=== PATIENT | female | born 1995 | race Caucasian/White ===

== ENCOUNTER 2017-06-09 09:05 | Emergency (ER) | payer OTHER ==
--- NOTE | 2017-06-09 09:28 | ER Document Report ---
ED Medical Screen (RME) - General Chief Complaint: Vaginal Bleeding Stated Complaint: VAGINAL BLEEDING Time Seen by Provider: 06/09/17 09:25 Mode of Arrival: Ambulatory Information source: Patient TRAVEL OUTSIDE OF THE [place] IN LAST 30 DAYS: No - HPI Patient complains to provider of: vaginal spotting in Onset: Yesterday - pt is a G1, approx 7 weeks along who started with some vaginal spotting and cramps yesterday. - Related Data Allergies/Adverse Reactions: No Known Allergies Allergy (Verified 06/09/17 09:23) Home Medications: Current Home Medications Vit Calc,Iron,Folic [ Vitamins] 1 each PO DAILY 06/09/17 [ History] Past Medical History - General Last Menstrual Period: 04/23/17 - Social History Chew tobacco use (# tins/day): No Frequency of alcohol use: None Drug Abuse: None Renal/ Medical History: Denies: Hx Peritoneal Dialysis Physical Exam - Vital signs Vitals: Temp Pulse Resp BP Pulse Ox 98.6 F 97 20 120/69 99 06/09/17 09:15 06/09/17 09:15 06/09/17 09:15 06/09/17 09:15 06/09/17 09:15 Course - Vital Signs Vital signs: Temp Pulse Resp BP Pulse Ox 98.6 F 97 20 120/69 99 06/09/17 09:15 06/09/17 09:15 06/09/17 09:15 06/09/17 09:15 06/09/17 09:15
[2017-06-09 10:01] LABS: ABSOLUTE EOSINOPHILS # (AUTO) 0.1 10^3/uL (0.0-0.6); ABSOLUTE LYMPHOCYTES (AUTO) 1.6 10^3/uL (0.5-4.7); ABSOLUTE MONOCYTES (AUTO) 0.4 10^3/uL (0.1-1.4); ABSOLUTE NEUT (AUTO) 4.9 10^3/uL (1.7-8.2); BASOPHILS % (AUTO) 0.2 % (0-2); EOSINOPHILS % (AUTO) 1.2 % (0-6); HEMATOCRIT 37.6 % (36.0-47.0); HEMOGLOBIN 12.6 g/dL (12.0-15.5); LYMPHOCYTES % (AUTO) 22.2 % (13-45); MEAN CORPUSCULAR HEMOGLOBIN 29.8 pg (27.0-33.4); MEAN CORPUSCULAR HGB CONC 33.5 g/dL (32.0-36.0); MEAN CORPUSCULAR VOLUME 89 fl (80-97); MONOCYTES % (AUTO) 6.1 % (3-13); PLATELET COUNT 191 10^3/uL (150-450); RED BLOOD COUNT 4.22 10^6/uL (3.72-5.28); RED CELL DISTRIBUTION WIDTH 14.1 % (11.5-14.0); SEGMENTED NEUTROPHILS % (AUTO) 70.3 % (42-78); TOTAL CELLS COUNTED % (AUTO) 100 %
[2017-06-09 10:04] LABS: APPEARANCE,URINE SLIGHTLY-CLOUDY; BILIRUBIN,URINE NEGATIVE (NEGATIVE); COLOR,URINE YELLOW; GLUCOSE, URINE NEGATIVE (NEGATIVE); KETONES,URINE NEGATIVE (NEGATIVE); LEUKOCYTE ESTERASE,URINE SMALL (NEGATIVE); NITRITE,URINE NEGATIVE (NEGATIVE); PROTEIN,URINE NEGATIVE (NEGATIVE); URINE SPECIFIC GRAVITY 1.028
[2017-06-09 10:14] LABS: ALANINE AMINOTRANSFERASE 25 U/L (9-52); ALBUMIN 4.5 g/dL (3.5-5.0); ALKALINE PHOSPHATASE 48 U/L (38-126); ANION GAP 14 (5-19); ASPARTATE AMINO TRANSFERASE 18 U/L (14-36); BILIRUBIN,DIRECT 0.2 mg/dL (0.0-0.4); BILIRUBIN,TOTAL 0.7 mg/dL (0.2-1.3); BLOOD UREA NITROGEN 12 mg/dL (7-20); CALCIUM 10.1 mg/dL (8.4-10.2); CARBON DIOXIDE 22 mmol/L (22-30); CHLORIDE 106 mmol/L (98-107); GLUCOSE 83 mg/dL (75-110); POTASSIUM 4.1 mmol/L (3.6-5.0); TOTAL PROTEIN 7.1 g/dL (6.3-8.2)
--- NOTE | 2017-06-09 11:02 | RADIOLOGY REPORT (SQ) ---
EXAM DESCRIPTION: U/S OB TRANSVAG W/DOPPLER COMPLETED DATE/TIME: 06/09/2017 10:28 am REASON FOR STUDY: vaginal spotting in COMPARISON: None. TECHNIQUE: Transvaginal static and realtime grayscale images acquired of the pelvis. Additional justin cted spectral and color Doppler images recorded. All images stored on PACs. bHCG: Pending. LIMITATIONS: None. FINDINGS: FETUS: Living intrauterine . EGA: 5 weeks 5 days PATRICIA: 02/04/2018 FHR: 99 beats per minute. SUBCHORIONIC BLEED: No. SIZE OF BLEED: Not applicable. UTERUS: Measures 9.2 x 6.7 x 5.6 cm. CERVICAL LENGTH: 3 cm. Closed. RIGHT ADNEXA: The right ovary measures 3.1 x 2.2 x 2.1 cm. Flow by Doppler was shown to the right ov silvia. LEFT ADNEXA: The left ovary measures 4.2 x 2.4 x 2.8 cm. Flow by Doppler was shown to the left ovary . There is a 3.0 cm cyst. FREE FLUID: Small amount of free fluid at the left adnexa. IMPRESSION: LIVING INTRAUTERINE . EGA 5 WEEKS 5 DAYS. 3.0 CM CYST AT THE LEFT OVARY. SMALL AMOUNT OF FREE FLUID AT THE LEFT ADNEXA. Trimester of : First - 0 to 13 weeks. TECHNICAL DOCUMENTATION: JOB ID: [id number]- All Rights Reserved
--- NOTE | 2017-06-09 11:16 | ER Document Report ---
ED GI/ - General Chief Complaint: Vaginal Bleeding Stated Complaint: VAGINAL BLEEDING Time Seen by Provider: 06/09/17 09:25 Mode of Arrival: Ambulatory Information source: Patient Notes: 22-year-old female G1 at 7-1/2 weeks by dates who presents today with the onset yesterday of some vaginal spotting. She states very mild suprapubic cramping without dysuria, flank pain, nausea, vomiting, or fevers. She denies any aggravating or relieving factors. TRAVEL OUTSIDE OF THE [place] IN LAST 30 DAYS: No - HPI Patient complains to provider of: Other - See above Onset: Other - See above Timing/Duration: Gradual Quality of pain: Achy Severity at maximum: Mild Severity in ED: Mild Pain Level: Denies Location: Other - See above Vaginal bleeding (Compared to normal period): Spotting Associated symptoms: Other - See above Exacerbated by: Denies Relieved by: Denies Similar symptoms previously: No Recently seen / treated by doctor: No - Related Data Allergies/Adverse Reactions: No Known Allergies Allergy (Verified 06/09/17 09:23) Home Medications: Current Home Medications Vit Calc,Iron,Folic [ Vitamins] 1 each PO DAILY 06/09/17 [ History] Past Medical History - General Information source: Patient Last Menstrual Period: 04/23/17 - Social History Smoking Status: Never Smoker Cigarette use (# per day): No Chew tobacco use (# tins/day): No Smoking Education Provided: No Frequency of alcohol use: None Drug Abuse: None Family History: Reviewed & Not Pertinent Patient has suicidal ideation: No Patient has homicidal ideation: No Renal/ Medical History: Denies: Hx Peritoneal Dialysis Review of Systems - Review of Systems Constitutional: denies: Fever Respiratory: denies: Short of breath Gastrointestinal: Abdominal pain. denies: Diarrhea, Vomiting Genitourinary: denies: Dysuria Musculoskeletal: denies: Leg swelling Skin: Other - no hives. denies: Rash Neurological/Psychological: Other - no slurred speech -: Yes All other systems reviewed and negative Physical Exam - Vital signs Vitals: Temp Pulse Resp BP Pulse Ox 98.6 F 97 20 120/69 99 06/09/17 09:15 06/09/17 09:15 06/09/17 09:15 06/09/17 09:15 06/09/17 09:15 Notes: Reviewed vital signs and nursing note as charted by RN. CONSTITUTIONAL: Alert and oriented and responds appropriately to questions. Well -appearing; well-nourished HEAD: Normocephalic; atraumatic CARD: Regular rate and rhythm; no murmurs RESP: Normal chest excursion without splinting or tachypnea; breath sounds clear and equal bilaterally ABD/GI: Normal bowel sounds; non-distended; soft, non-tender to deep palpation of all 4 quadrants of the abdomen : With tractor mechanic present with profound pelvic examination. No external or internal lesions. Osseous closed. No cervical motion tenderness or adnexal masses or tenderness BACK: There is no CVA tenderness EXT: Normal ROM in all joints; no edema SKIN: No acute lesions noted NEURO: Moves all extremities equally; Motor and sensory function intact PSYCH: The patient's mood and manner are appropriate. Grooming and personal hygiene are appropriate. Course - Re-evaluation Re-evalutation: 06/09/17 11:11 Given the history and physical examination ultrasound, pelvic exam, RhoGam/ blood type, and laboratory values were ordered. Ultrasound shows IUP, 5 weeks 5 days. Adnexal mass as recorded. Quantitative hCG is recorded. Urinalysis as recorded. Patient has no urinary symptoms. Urine culture has been sent. Patient still denies any pain at this time. Patient will be discharged home with strict return precautions and follow-up with HEALTH SERVICES RN. - Vital Signs Vital signs: Temp Pulse Resp BP Pulse Ox 98.6 F 97 20 120/69 99 06/09/17 09:15 06/09/17 09:15 06/09/17 09:15 06/09/17 09:15 06/09/17 09:15 - Laboratory Result Diagrams: 06/09/17 09:34 06/09/17 09:34 Laboratory results interpreted by me: 06/09/17 06/09/17 06/09/17 09:34 09:34 09:34 RDW 14.1 H Beta HCG, Quant 53068.00 H Urine Urobilinogen 4.0 H Ur Leukocyte Esterase SMALL H Discharge - Discharge Clinical Impression: Threatened miscarriage in early Condition: Good Disposition: HOME, SELF-CARE Instructions: Bleeding During Early ([facility]) Additional Instructions: Come back immediately with any increased bleeding, fever, vomiting, or any other acute problems. Please follow-up with HEALTH SERVICES RN as well as the urine culture results as we have discussed. Referrals: [facility] [Provider Group] - Follow up as needed
[2017-06-09 11:19] LABS: T.VAGINALIS (WET MOUNT) NO TRICHOMONAS SEEN
[2017-06-09 11:20] LABS: BACTERIA (WET MOUNT) 3+ BACTERIA SEEN; RBCS (WET MOUNT) NO RBCS SEEN; WBCS (WET MOUNT) 2+ WBCS SEEN; YEAST (WET MOUNT) NO YEAST SEEN
[2017-06-09 12:13] VITALS: BP 107/53
[2017-06-09 12:39] LABS: CHLAM PCR NOT DETECTED (NOT DETECT); GON PCR NOT DETECTED (NOT DETECT)
== END 2017-06-09 12:00 | disposition home or self-care (01) ==
LOC: ER 09:05
DX: O20.0 Threatened abortion (principal); O34.81 Maternal care for other abnormalities of pelvic organs, first trimester; N83.202 Unspecified ovarian cyst, left side; Z3A.01 Less than 8 weeks gestation of pregnancy
CPT/HCPCS: 36415; 76817; 80053; 81001; 84702; 85025; 86900; 86901; 87086; 87210; 87491; 87591; 93976; 99284

== ENCOUNTER 2017-11-23 19:27 | Outpatient (CLI) | payer OTHER ==
[2017-11-23 20:23] LABS: BACTERIA (WET MOUNT) 3+ BACTERIA SEEN; RBCS (WET MOUNT) 1+ RBCS SEEN; T.VAGINALIS (WET MOUNT) NO TRICHOMONAS SEEN; WBCS (WET MOUNT) 2+ WBCS SEEN; YEAST (WET MOUNT) NO YEAST SEEN
[2017-11-23 20:24] LABS: EPITHELIALS (WET MOUNT) 3+ EPITHELIALS SEEN
[2017-11-23 20:29] LABS: AMNISURE (ROM) NEGATIVE (NEGATIVE)
[2017-11-23 20:29] LABS: AMORPHOUS SEDIMENT,URINE 1+ /HPF; APPEARANCE,URINE TURBID; BILIRUBIN,URINE NEGATIVE (NEGATIVE); COLOR,URINE YELLOW; GLUCOSE, URINE NEGATIVE (NEGATIVE); KETONES,URINE TRACE mg/dL (NEGATIVE); LEUKOCYTE ESTERASE,URINE NEGATIVE (NEGATIVE); NITRITE,URINE NEGATIVE (NEGATIVE); PROTEIN,URINE NEGATIVE (NEGATIVE); URINE SPECIFIC GRAVITY 1.016
[2017-11-23 20:45] LABS: URINE AMPHETAMINES SCREEN NEGATIVE; URINE BARBITURATES SCREEN NEGATIVE; URINE BENZODIAZEPINES SCREEN NEGATIVE; URINE COCAINE SCREEN NEGATIVE; URINE MARIJUANA (THC) SCREEN NEGATIVE; URINE METHADONE SCREEN NEGATIVE; URINE PHENCYCLIDINE SCREEN NEGATIVE
== END 2017-11-23 21:04 | disposition home or self-care (01) ==
LOC: LC 19:27
PROVIDERS: ATTEND Obstetrics & Gynecology
PROC: 4A1HXCZ Monitoring of Products of Conception, Cardiac Rate, External Approach (ICD-10-PCS; principal; 2017-11-23)
DX: O47.03 False labor before 37 completed weeks of gestation, third trimester (principal); Z3A.30 30 weeks gestation of pregnancy
CPT/HCPCS: 80307; 81001; 84112; 87210

== ENCOUNTER 2017-12-09 12:43 | Outpatient (CLI) | payer OTHER ==
[2017-12-09 13:25] LABS: APPEARANCE,URINE CLEAR; BILIRUBIN,URINE NEGATIVE (NEGATIVE); COLOR,URINE YELLOW; GLUCOSE, URINE NEGATIVE (NEGATIVE); KETONES,URINE 20 mg/dL (NEGATIVE); LEUKOCYTE ESTERASE,URINE NEGATIVE (NEGATIVE); NITRITE,URINE NEGATIVE (NEGATIVE); PROTEIN,URINE 30 mg/dL (NEGATIVE); URINE SPECIFIC GRAVITY 1.025
[2017-12-09 13:38] LABS: URINE AMPHETAMINES SCREEN NEGATIVE; URINE BARBITURATES SCREEN NEGATIVE; URINE BENZODIAZEPINES SCREEN NEGATIVE; URINE COCAINE SCREEN NEGATIVE; URINE MARIJUANA (THC) SCREEN NEGATIVE; URINE METHADONE SCREEN NEGATIVE; URINE PHENCYCLIDINE SCREEN NEGATIVE
[2017-12-09] MEDS ORDERED: ACETAMINOPHEN 325 MG TABLET ONE (14:26)
--- NOTE | 2017-12-09 15:23 | Non Stress Test Report ---
Non Stress Test Datetime Report Generated by CPN: 12/09/2017 15:22 DEMOGRAPHIC EGA NST: 32.6 INDICATION Indication for Study: Other Indication for Study (NST) Other: labor check VITAL SIGNS Temperature - NST: 98.5 Pulse - NST: 86 RESP - NST: 14 NBPSYS NST: 102 NBPDIA NST: 64 MONITORING Monitor Explained: Monitor Explained; Test Explained; Patient Verbalized Understanding Time on Monitor: 12/09/2017 14:41 Time off Monitor: 12/09/2017 15:01 NST Duration: 20 NST INTERVENTIONS NST Interventions: PO Hydration Physician Notified NST: Dr. Valdivia BABY A: [id number] BABY A Movement : Present Contraction Frequency : 0 FHR Baseline : 135 Accelerations : 15X15 Decelerations : None Variability : Moderate 6-25bpm NST Review: Meets Criteria for Reactive NST NST Review and Verified By : Mitzi Turner RN NST Results: Reactive NST REPORT Report Trigger: Send Report
== END 2017-12-09 16:05 | disposition home or self-care (01) ==
LOC: LC 12:43
PROVIDERS: ATTEND Obstetrics & Gynecology Gynecology
PROC: 4A1HXCZ Monitoring of Products of Conception, Cardiac Rate, External Approach (ICD-10-PCS; principal; 2017-12-09)
DX: O26.893 Other specified pregnancy related conditions, third trimester (principal); M54.9 Dorsalgia, unspecified; Z3A.32 32 weeks gestation of pregnancy
CPT/HCPCS: 59025; 80307; 81001

== ENCOUNTER 2018-01-14 15:14 | Outpatient (CLI) | payer OTHER ==
--- NOTE | 2018-01-14 15:57 | Non Stress Test Report ---
Non Stress Test Datetime Report Generated by CPN: 01/14/2018 15:56 DEMOGRAPHIC EGA NST: 38.0 INDICATION Indication for Study: Ordered by Provider MONITORING Monitor Explained: Monitor Explained; Test Explained; Patient Verbalized Understanding Time on Monitor: 01/14/2018 15:29 Time off Monitor: 01/14/2018 15:53 NST Duration: 24 NST INTERVENTIONS NST Interventions: None Physician Notified NST: J. Yang, CNM BABY A: [id number] BABY A Movement : Present Contraction Frequency : 7-10 FHR Baseline : 120 Accelerations : 15X15 Decelerations : None Variability : Moderate 6-25bpm NST Review: Meets Criteria for Reactive NST NST Review and Verified By : Juan Ramon Pemberton RN NST Results: Reactive NST REPORT Report Trigger: Send Report
== END 2018-01-14 15:54 | disposition home or self-care (01) ==
LOC: LC 15:14
PROVIDERS: ATTEND Obstetrics & Gynecology Gynecology
PROC: 4A1HXCZ Monitoring of Products of Conception, Cardiac Rate, External Approach (ICD-10-PCS; principal; 2018-01-14)
DX: Z34.93 Encounter for supervision of normal pregnancy, unspecified, third trimester (principal)
CPT/HCPCS: 59025

== ENCOUNTER 2018-09-27 17:40 | Emergency (ER) | payer OTHER ==
[2018-09-27] MEDS ORDERED: NORMAL SALINE 1000 ML 1,000 ML IV ONE (19:38)
--- NOTE | 2018-09-27 19:40 | ER Document Report ---
ED Medical Screen (RME) - General Chief Complaint: Vomiting/Diarrhea Stated Complaint: VOMITING/DIARRHEA Time Seen by Provider: 09/27/18 19:38 Primary Care Provider: SALOMON QUIÑONES MD [Primary Care Provider] - Follow up as needed Mode of Arrival: Ambulatory Information source: Patient Notes: Patient presents 14 weeks . Patient complains of nausea vomiting diarrhea with symptoms starting yesterday. Patient states she is vomited once today and had diarrhea 7 times. Patient does complain of lower abdominal pain. Patient denies any fever. Patient does states she has a history of PE and is supposed to be on Lovenox but they are moving recently and she has not had the medication for the past 8 days. I have greeted and performed a rapid initial assessment of this patient. A comprehensive ED assessment and evaluation of the patient, analysis of test results and completion of the medical decision making process will be conducted by additional ED providers. TRAVEL OUTSIDE OF THE [place] IN LAST 30 DAYS: No - Related Data Allergies/Adverse Reactions: tomato Allergy (Verified 09/27/18 17:44) Difficulty breathing, hives Past Medical History Renal/ Medical History: Denies: Hx Peritoneal Dialysis Physical Exam - Vital signs Vitals: Temp Pulse Resp BP Pulse Ox 98.7 F 97 18 113/55 L 95 09/27/18 18:05 09/27/18 18:05 09/27/18 18:05 09/27/18 18:05 09/27/18 18:05 - Abdominal Tenderness: Tender - Lower abdominal tenderness Course - Vital Signs Vital signs: Temp Pulse Resp BP Pulse Ox 98.7 F 97 18 113/55 L 95 09/27/18 18:05 09/27/18 18:05 09/27/18 18:05 09/27/18 18:05 09/27/18 18:05 Doctor's Discharge - Discharge Referrals: SALOMON QUIÑONES MD [Primary Care Provider] - Follow up as needed
[2018-09-27 20:48] LABS: ABSOLUTE LYMPHOCYTES (AUTO) 0.5 10^3/uL (0.5-4.7); ABSOLUTE MONOCYTES (AUTO) 0.2 10^3/uL (0.1-1.4); ABSOLUTE NEUT (AUTO) 4.8 10^3/uL (1.7-8.2); BASOPHILS % (AUTO) 0.1 % (0-2); EOSINOPHILS % (AUTO) 0.1 % (0-6); HEMOGLOBIN 13.1 g/dL (12.0-15.5); LYMPHOCYTES % (AUTO) 9.6 % (13-45); MEAN CORPUSCULAR HEMOGLOBIN 29.8 pg (27.0-33.4); MEAN CORPUSCULAR HGB CONC 33.6 g/dL (32.0-36.0); MEAN CORPUSCULAR VOLUME 89 fl (80-97); MONOCYTES % (AUTO) 3.8 % (3-13); PLATELET COUNT 175 10^3/uL (150-450); RED CELL DISTRIBUTION WIDTH 14.6 % (11.5-14.0); SEGMENTED NEUTROPHILS % (AUTO) 86.4 % (42-78); TOTAL CELLS COUNTED % (AUTO) 100 %; WHITE BLOOD COUNT 5.6 10^3/uL (4.0-10.5)
[2018-09-27 20:52] LABS: INTERNATIONAL RATION (INR) 0.94
--- NOTE | 2018-09-27 21:01 | RADIOLOGY REPORT (SQ) ---
EXAM DESCRIPTION: US LIMITED COMPLETED DATE/TME: 09/27/2018 19:38 CLINICAL HISTORY: 23 years Female lower abd pain COMPARISON: None. TECHNIQUE: Transabdominal duplex imaging performed to evaluate the pelvis. FINDINGS: The cervix measures 2.7 cm and appears closed. Uterus measures 12.3 x 10.1 cm. There is a single gestational sac pole. Heart rate 152 bpm. Right ovary measures 3.4 x 1.9 cm. 1.5 cm ovarian cyst which is almost certainly benign and no follow-up is recommended. Left ovary measures 4 x 1.6 cm. There is normal bilateral ovarian blood flow. Subjectively normal MARCO. Estimated age 14 weeks. IMPRESSION: Living IUP corresponding to 14 weeks
[2018-09-27 21:05] LABS: ALANINE AMINOTRANSFERASE 22 U/L (9-52); ALBUMIN 4.4 g/dL (3.5-5.0); ALKALINE PHOSPHATASE 53 U/L (38-126); ANION GAP 11 (5-19); ASPARTATE AMINO TRANSFERASE 27 U/L (14-36); BILIRUBIN,DIRECT 0.2 mg/dL (0.0-0.4); BILIRUBIN,TOTAL 0.3 mg/dL (0.2-1.3); BLOOD UREA NITROGEN 7 mg/dL (7-20); CALCIUM 9.8 mg/dL (8.4-10.2); CARBON DIOXIDE 22 mmol/L (22-30); CHLORIDE 103 mmol/L (98-107); GLUCOSE 82 mg/dL (75-110); LIPASE 64.2 U/L (23-300); POTASSIUM 4.1 mmol/L (3.6-5.0); SODIUM 135.8 mmol/L (137-145); TOTAL PROTEIN 7.7 g/dL (6.3-8.2)
[2018-09-27] MEDS ORDERED: METOCLOPRAMIDE HCL INJ/PF 10 MG/2 ML SDV IV ONE (21:44)
[2018-09-27 22:10] LABS: APPEARANCE,URINE CLOUDY; BILIRUBIN,URINE NEGATIVE (NEGATIVE); GLUCOSE, URINE NEGATIVE (NEGATIVE); KETONES,URINE 80 mg/dL (NEGATIVE); LEUKOCYTE ESTERASE,URINE MODERATE (NEGATIVE); NITRITE,URINE NEGATIVE (NEGATIVE); PROTEIN,URINE 30 mg/dL (NEGATIVE)
[2018-09-27 22:17] LABS: COLOR,URINE DARK YELLOW
--- NOTE | 2018-09-27 22:50 | ER Document Report ---
ED General - General Chief Complaint: Vomiting/Diarrhea Stated Complaint: VOMITING/DIARRHEA Time Seen by Provider: 09/27/18 19:38 Primary Care Provider: SALOMON QUIÑONES MD [ACTIVE STAFF] - Follow up as needed Mode of Arrival: Ambulatory Information source: Patient TRAVEL OUTSIDE OF THE [place] IN LAST 30 DAYS: No - HPI Patient complains to provider of: Nausea vomiting and diarrhea, 14 weeks Onset: Yesterday Onset/Duration: Sudden Quality of pain: No pain Severity: None Associated symptoms: Diarrhea, Nausea, Vomiting. denies: Chills, Fever Exacerbated by: Denies Relieved by: Denies Similar symptoms previously: No Recently seen / treated by doctor: No Notes: 23-year-old female here with nausea this started yesterday and vomiting and diarrhea that started today. She is 14 weeks . Not having any pelvic cramping or vaginal bleeding. No fevers or chills. No flulike illness. - Related Data Allergies/Adverse Reactions: tomato Allergy (Verified 09/27/18 17:44) Difficulty breathing, hives Past Medical History - General Information source: Patient - Social History Smoking Status: Never Smoker Chew tobacco use (# tins/day): No Frequency of alcohol use: None Drug Abuse: None Family History: Reviewed & Not Pertinent Patient has suicidal ideation: No Patient has homicidal ideation: No Renal/ Medical History: Denies: Hx Peritoneal Dialysis Review of Systems - Review of Systems Notes: Constitutional: No fevers. No chills. EENT: No eye redness. No eye pain. No ear pain. No sore throat. Cardiovascular: No chest pain. No palpitations. Respiratory: No cough. No shortness of breath. No respiratory distress. Gastrointestinal: No abdominal pain. Positive for nausea vomiting and diarrhea Genitourinary: Atraumatic. No lesions. No pain. No discharge. Musculoskeletal: Atraumatic. No swelling. No deformities. Skin: No rash or lesions. Lymphatic: No swollen lymph nodes. Neurologic: No headache. No syncope. Psychiatric: No suicidal or homicidal ideation. Physical Exam - Vital signs Vitals: Temp Pulse Resp BP Pulse Ox 98.7 F 97 18 113/55 L 95 09/27/18 18:05 09/27/18 18:05 09/27/18 18:05 09/27/18 18:05 09/27/18 18:05 - Notes Notes: General: Well-developed, well-nourished. In no acute distress. Non-toxic appearing. Cardiac: Well-perfused. Regular rate and rhythm. No murmurs, rubs, or gallops. Pulmonary: No respiratory distress. No cyanosis. Bilateral lung fiels are clear to auscultation. Abdominal: Non-distended. Non-rigid. Bowels sounds are present in all four quadrants. No guarding or rebound. HEENT: Head is atraumatic. Conjunctivae not reddened. No tearing. PERRL. EOMI. Orbits atraumatic. No periorbital swelling or erythema. Oropharynx is without erythema, swelling, or exudates. Neck: Supple. No adenopathy. No meningismus. Dermatologic: Warm with good turgor. No rash. Atraumatic. Chest: Atraumatic. No chest wall tenderness to palpation. Musculoskeletal: Moves all extremities well. No range of motion deficits. no muscular or joint tenderness. No paraspinal muscle tenderness. no midline spinal tenderness or step-off. Genitourinary: Examination deferred Neurologic: No gross neurologic deficits. Psychiatric: Normal mood. Course - Re-evaluation Re-evalutation: 09/27/18 22:48 Labs reassuring. Ultrasound shows a healthy baby. Patient better after fluids and Reglan. Will discharge home with Reglan - Vital Signs Vital signs: Temp Pulse Resp BP Pulse Ox 99.8 F 90 16 99/53 L 100 09/27/18 22:06 09/27/18 22:06 09/27/18 22:06 09/27/18 22:06 09/27/18 22:06 - Laboratory Result Diagrams: 09/27/18 20:30 09/27/18 20:30 Laboratory results interpreted by me: 09/27/18 09/27/18 09/27/18 20:30 20:30 21:40 RDW 14.6 H Seg Neutrophils % 86.4 H Lymphocytes % 9.6 L Sodium 135.8 L Urine Protein 30 H Urine Ketones 80 H Urine Urobilinogen 2.0 H Ur Leukocyte Esterase MODERATE H Urine Ascorbic Acid 40 H Discharge - Discharge Clinical Impression: Gastroenteritis Condition: Good Disposition: HOME, SELF-CARE Instructions: Clear Liquid Diet ([facility]), Diarrhea, Nonspecific ([facility]), Antinausea Medication ([facility]), Gastroenteritis (adult) ([facility]), Intravenous (IV) Fluids ([facility]), Reglan ([facility]), Vomiting ([facility]) Additional Instructions: Push fluids/Gatorade to keep up your electrolytes. Reglan as needed for nausea and vomiting. Follow-up with your doctor on Sunday. Return to the ER over the weekend if symptoms get worse Prescriptions: Metoclopramide HCl [Reglan 10 mg Tablet] 1 tab PO Q6HP PRN #20 tablet PRN Reason: Referrals: SALOMON QUIÑONES MD [ACTIVE STAFF] - Follow up as needed
[2018-09-27 23:35] VITALS: BP 105/40
== END 2018-09-27 23:35 | disposition home or self-care (01) ==
LOC: ER 17:40
DX: O26.92 Pregnancy related conditions, unspecified, second trimester (principal); K52.9 Noninfective gastroenteritis and colitis, unspecified; O21.9 Vomiting of pregnancy, unspecified; Z3A.14 14 weeks gestation of pregnancy
CPT/HCPCS: 99284; 96361; 96374; 36415; 87045; 87205; 83690; 85025; 85610; 85730; 80053; 81001; 87493; 76815; J2765; J7030

== ENCOUNTER → 2018-12-11 | Outpatient (CLI) | payer OTHER ==
--- NOTE | 2018-12-11 16:00 | XCELERA REPORT ---
[address] [facility] [address] Lower Extremity Venous Evaluation Procedure: Color flow and duplex imaging of the veins of the left lower extremity as well as the right Common Femoral vein. Right Sided Venous Evaluation The right common femoral vein is fully compressible. Spontaneous and phasic flow is present in the right common femoral vein. Left Sided Venous Evaluation Normal vessel filling wall to wall, compression and augmentation as well as Colour flow down to the infrageniculate veins. Interpretation Summary No duplex evidence of DVT or obstruction in the left lower extremity nor in the right Common Femoral vein. Name: LAURO HANCOCK Age: 23 yrs Gender: Female : 1995 Patient Status: Outpatient Patient Location: Study Date: 12/11/2018 10:03 AM Reason For Study: LLE PAIN Ordering Physician: ROSY FOREMAN Performed By: Yaquelin Sims : ROSY FOREMAN > Remington Armendariz
== END ==
LOC: RAD 08:38
PROVIDERS: ATTEND Advanced Practice Midwife
DX: M79.605 Pain in left leg (principal); Z86.711 Personal history of pulmonary embolism
CPT/HCPCS: 93971

== ENCOUNTER 2019-02-27 14:35 | Outpatient (CLI) | payer OTHER ==
[2019-02-27] MEDS ORDERED: RINGERS SOLUTION,LACTATED 1,000 ML IV PRN (15:47)
--- NOTE | 2019-02-27 16:35 | Non Stress Test Report ---
Non Stress Test Datetime Report Generated by CPN: 02/27/2019 16:35 DEMOGRAPHIC EGA NST: 35.6 INDICATION Indication for Study: Ordered by Provider VITAL SIGNS Temperature - NST: 98.2 RESP - NST: 16 MONITORING Monitor Explained: Monitor Explained; Test Explained; Patient Verbalized Understanding Time on Monitor: 02/27/2019 14:42 Time off Monitor: 02/27/2019 16:29 NST Duration: 107 NST INTERVENTIONS Physician Notified NST: J Yang CNM BABY A: [id number] BABY A Movement : Present Contraction Frequency : irregular FHR Baseline : 125 Accelerations : 15X15 Decelerations : Variable Variability : Moderate 6-25bpm NST Review: Meets Criteria for Reactive NST NST Review: Meets Criteria for Reactive NST NST Review and Verified By : Bobby Chavez, RN NST Results: Reactive NST COMMENTS NST Comments: on unit reviewed strip NST REPORT Report Trigger: Send Report
== END 2019-02-27 16:50 | disposition home or self-care (01) ==
LOC: LC 14:35
PROVIDERS: ATTEND Obstetrics & Gynecology
PROC: 4A1HXCZ Monitoring of Products of Conception, Cardiac Rate, External Approach (ICD-10-PCS; principal; 2019-02-27)
DX: O36.8330 Maternal care for abnormalities of the fetal heart rate or rhythm, third trimester, not applicable or unspecified (principal); Z3A.35 35 weeks gestation of pregnancy
CPT/HCPCS: 59025

== ENCOUNTER 2019-03-18 06:09 | Outpatient (CLI) | payer OTHER ==
[2019-03-18 08:05] LABS: APPEARANCE,URINE SLIGHTLY-CLOUDY; BILIRUBIN,URINE NEGATIVE (NEGATIVE); COLOR,URINE YELLOW; GLUCOSE, URINE NEGATIVE (NEGATIVE); KETONES,URINE TRACE mg/dL (NEGATIVE); LEUKOCYTE ESTERASE,URINE MODERATE (NEGATIVE); NITRITE,URINE NEGATIVE (NEGATIVE); PROTEIN,URINE NEGATIVE (NEGATIVE); URINE SPECIFIC GRAVITY 1.011; UROBILINOGEN,URINE NEGATIVE mg/dL (<2.0)
[2019-03-18 08:20] LABS: URINE AMPHETAMINES SCREEN NEGATIVE; URINE BARBITURATES SCREEN NEGATIVE; URINE BENZODIAZEPINES SCREEN NEGATIVE; URINE COCAINE SCREEN NEGATIVE; URINE MARIJUANA (THC) SCREEN NEGATIVE; URINE METHADONE SCREEN NEGATIVE; URINE PHENCYCLIDINE SCREEN NEGATIVE
[2019-03-18] MEDS ORDERED: HYDROXYZINE PAMOATE 50 MG CAPSULE PO ONE (08:50)
[2019-03-18] MEDS ORDERED: HYDROXYZINE PAMOATE 50 MG CAPSULE ONE (08:53)
--- NOTE | 2019-03-18 09:05 | Non Stress Test Report ---
Non Stress Test Datetime Report Generated by CPN: 03/18/2019 09:05 DEMOGRAPHIC EGA NST: 38.4 INDICATION Indication for Study: Ordered by Provider; Other - Please document "Reason for NST Other" in box below. Indication for Study (NST) Other: LC VITAL SIGNS Temperature - NST: 98.7 Pulse - NST: 73 RESP - NST: 15 NBPSYS NST: 107 NBPDIA NST: 59 MONITORING Monitor Explained: Monitor Explained; Test Explained; Patient Verbalized Understanding Time on Monitor: 03/18/2019 06:50 Time off Monitor: 03/18/2019 07:10 NST Duration: 20 NST INTERVENTIONS NST Interventions: None Physician Notified NST: A Sky CNM BABY A: [id number] BABY A Movement : Present Contraction Frequency : 2-4 FHR Baseline : 120 Accelerations : 15X15 Decelerations : None Variability : Moderate 6-25bpm NST Review: Meets Criteria for Reactive NST NST Review and Verified By : R Michelle RN NST Results: Reactive NST COMMENTS NST Comments: provider on unit reviewing entire FHT strip NST REPORT Report Trigger: Send Report
== END 2019-03-18 09:03 | disposition home or self-care (01) ==
LOC: LC 06:09
PROVIDERS: ATTEND Student in an Organized Health Care Education/Training Program
PROC: 4A1HXCZ Monitoring of Products of Conception, Cardiac Rate, External Approach (ICD-10-PCS; principal; 2019-03-18)
DX: O47.1 False labor at or after 37 completed weeks of gestation (principal); Z3A.38 38 weeks gestation of pregnancy
CPT/HCPCS: 59025; 80307; 81005

== ENCOUNTER 2019-03-20 16:38 | Outpatient (CLI) | payer OTHER ==
[2019-03-20 18:11] LABS: APPEARANCE,URINE CLOUDY; BILIRUBIN,URINE NEGATIVE (NEGATIVE); COLOR,URINE YELLOW; GLUCOSE, URINE NEGATIVE (NEGATIVE); KETONES,URINE NEGATIVE (NEGATIVE); LEUKOCYTE ESTERASE,URINE LARGE (NEGATIVE); NITRITE,URINE NEGATIVE (NEGATIVE); PROTEIN,URINE 30 mg/dL (NEGATIVE); URINE SPECIFIC GRAVITY 1.021; UROBILINOGEN,URINE NEGATIVE mg/dL (<2.0)
[2019-03-20 18:45] LABS: URINE AMPHETAMINES SCREEN NEGATIVE; URINE BARBITURATES SCREEN NEGATIVE; URINE BENZODIAZEPINES SCREEN NEGATIVE; URINE COCAINE SCREEN NEGATIVE; URINE MARIJUANA (THC) SCREEN NEGATIVE; URINE METHADONE SCREEN NEGATIVE; URINE PHENCYCLIDINE SCREEN NEGATIVE
== END 2019-03-20 19:10 | disposition home or self-care (01) ==
LOC: LC 16:38
PROVIDERS: ATTEND Student in an Organized Health Care Education/Training Program
PROC: 4A1HXCZ Monitoring of Products of Conception, Cardiac Rate, External Approach (ICD-10-PCS; principal; 2019-03-20)
DX: O47.1 False labor at or after 37 completed weeks of gestation (principal); Z3A.38 38 weeks gestation of pregnancy
CPT/HCPCS: 59025; 80307; 81005

== ENCOUNTER 2019-03-24 06:11 | Inpatient (IN) | payer OTHER ==
[2019-03-24] MEDS ORDERED: RINGERS SOLUTION,LACTATED 1,000 ML IV PRN (06:17)
[2019-03-24] MEDS ORDERED: RINGERS SOLUTION,LACTATED 300 ML IV ONE (06:18)
[2019-03-24] MEDS ORDERED: OXYTOCIN/NORMAL SALINE 20 UNIT/1,000 ML RTUINJ IV PRN ×2 (06:18→14:33)
[2019-03-24] MEDS ORDERED: OXYTOCIN 10 UNIT/ML VIAL ONE (06:47)
[2019-03-24] MEDS ORDERED: OXYTOCIN/NORMAL SALINE 20 UNIT/1,000 ML RTUINJ ONE (06:47)
[2019-03-24] MEDS ORDERED: LIDOCAINE 1% INJ-PF (10 MG/ML) 30 ML SDV ONE (06:47)
[2019-03-24] MEDS ORDERED: MISOPROSTOL 0.2 MG TABLET ONE (06:47)
--- NOTE | 2019-03-24 07:20 | Admission Physical ---
Datetime Report Generated by CPN: 03/24/2019 07:20 CURRENT ADMISSION Indication for Induction- Other: Factor V Fixnps-Bzywapdfddbf-so Lovenox Admit Impression : Term, Intrauterine ; No Active Labor; Intact Membranes Admit Plan: Admit to Unit; Initiate Labor Induction Protocol ALLERGIES Medication Allergies: No Medication Allergies: tomato/Difficulty brandie (03/24/2019) Latex: No Latex Allergies Environmental Allergies: adhesive bandage OBSTETRICAL HISTORY EDC: 03/28/2019 00:00 : 2 Para: 1 Ectopic: 0 Livin Cesareans: 0 Multiple Births: 0 Gestational Diabetes: No Rh Sensitization: No Incompetent Cervix: No REID: No Infertility: No ART Treatment: No Uterine Anomaly: No IUGR: No Hx Previous C/S: No Macrosomia: No Hx Loss/Stillborn: No PIH: No Hx : No Placenta Previa/Abruption: No Depression/PP Depression: No PTL/PROM: No Post Hemorrhage: No Current Procedures: Ultrasound; NST Obstetrical History Comments: G1- 2018 term , 4th degree lac G2- current SEE RECORDS Alcohol: No Marijuana : No Cocaine: No Other Illicit Drugs: No Cigarettes: Never Smoker. [id number] MEDICAL HISTORY Diabetes: No Blood Transfusion: No Pulmonary Disease (Asthma, TB): No Breast Disease: No Hypertension: No Job Order Clerk Surgery: No Heart Disease: No Hosp/Surgery: No Autoimmune Disorder: No Anesthetic Complications: No Kidney Disease: No Abnormal Pap Smear: No Neuro/Epilepsy: No Psychiatric Disorders: No Other Medical Diseases: Yes Hepatitis/Liver Disease: No Significant Family History: No Varicosities/Phlebitis: No Trauma/Violence : No Thyroid Dysfunction: No Medical History Comments: pulmonary embolism INFECTIOUS HISTORY Gonorrhea: No Genital Herpes: No Chlamydia: No Tuberculosis: No Syphilis: No Hepatitis: No HIV/AIDS Exposure: No Rash or Viral Illness: No HPV: No PHYSICAL EXAM General: Normal HEENT: Normal Neurologic: Normal Thyroid: Normal Heart: Normal Lungs: Normal Breast: Normal Back: Normal Abdomen: Normal Genitourinary Exam: Normal Extremities: Normal DTRs: Normal Pelvic Type: Adequate Vital Signs: Reviewed; Within Normal Limits VAGINAL EXAM Dilatation: 3 Effacement: 50% Station: -3 Contraction Comments: q 4-6 MEMBRANES Membranes: Intact FETUS A Monitoring: External US FHR- Baseline: 120s Accelerations: 15X15 Decelerations: None FHR Category: Category I Admit Comment: w/IUP@39.3 presents to L_D for an IOL secondary to Factor V Leiden (heterozygous). She is on Lovenox 40 mg SQ qd. She discontinued use 24 hrs ago. She reports good movement. GBS Neg. Cervix is 3 cm. IOL w/pitocin. PLANS FOR LABOR AND DELIVERY Labor and Delivery: None Pain Management: None; Natural Other Pain Management Plans: epiduaral if pain is to intense Feeding Preference: Breast Benefit of Breast Feed Discussed: Yes Circumcision: N/A INFORMED CONSENT Signature: with User ID: [email or web address]
[2019-03-24 07:46] LABS: ABSOLUTE EOSINOPHILS # (AUTO) 0.1 10^3/uL (0.0-0.6); ABSOLUTE LYMPHOCYTES (AUTO) 1.5 10^3/uL (0.5-4.7); ABSOLUTE MONOCYTES (AUTO) 0.6 10^3/uL (0.1-1.4); BASOPHILS % (AUTO) 0.3 % (0-2); EOSINOPHILS % (AUTO) 0.8 % (0-6); HEMATOCRIT 34.9 % (36.0-47.0); HEMOGLOBIN 11.8 g/dL (12.0-15.5); LYMPHOCYTES % (AUTO) 21.5 % (13-45); MEAN CORPUSCULAR HEMOGLOBIN 30.6 pg (27.0-33.4); MEAN CORPUSCULAR HGB CONC 33.8 g/dL (32.0-36.0); MEAN CORPUSCULAR VOLUME 90 fl (80-97); MONOCYTES % (AUTO) 7.8 % (3-13); PLATELET COUNT 139 10^3/uL (150-450); RED BLOOD COUNT 3.86 10^6/uL (3.72-5.28); RED CELL DISTRIBUTION WIDTH 13.4 % (11.5-14.0); SEGMENTED NEUTROPHILS % (AUTO) 69.6 % (42-78); TOTAL CELLS COUNTED % (AUTO) 100 %; WHITE BLOOD COUNT 7.1 10^3/uL (4.0-10.5)
[2019-03-24 07:47] LABS: APPEARANCE,URINE CLOUDY; BILIRUBIN,URINE NEGATIVE (NEGATIVE); COLOR,URINE YELLOW; GLUCOSE, URINE NEGATIVE (NEGATIVE); KETONES,URINE NEGATIVE (NEGATIVE); LEUKOCYTE ESTERASE,URINE SMALL (NEGATIVE); NITRITE,URINE NEGATIVE (NEGATIVE); PROTEIN,URINE NEGATIVE (NEGATIVE); URINE SPECIFIC GRAVITY 1.016; UROBILINOGEN,URINE NEGATIVE mg/dL (<2.0)
[2019-03-24 08:09] LABS: URINE AMPHETAMINES SCREEN NEGATIVE; URINE BARBITURATES SCREEN NEGATIVE; URINE BENZODIAZEPINES SCREEN NEGATIVE; URINE COCAINE SCREEN NEGATIVE; URINE MARIJUANA (THC) SCREEN NEGATIVE; URINE METHADONE SCREEN NEGATIVE; URINE PHENCYCLIDINE SCREEN NEGATIVE
[2019-03-24] MEDS ORDERED: FENTANYL/BUPIVACAINE/NS/PF 0 MCG/0 ML RTUINJ EPI ONE (12:56)
[2019-03-24] MEDS ORDERED: EPHEDRINE SULFATE INJ 50 MG/1 ML AMPULE ONE (12:56)
[2019-03-24] MEDS ORDERED: BUPIVACAINE HCL 0.25 % INJ/PF (2.5 MG/1 ML) 30 ML VIAL ONE (12:57)
[2019-03-24] MEDS ORDERED: BENZOCAINE/MENTHOL AEROSOL SPRAY 56 ML ONE (14:33)
[2019-03-24] MEDS ORDERED: BENZOCAINE/MENTHOL AEROSOL SPRAY 56 ML TOP PRN (14:33)
[2019-03-24] MEDS ORDERED: DIBUCAINE 1% OINTMENT 56 GM TP PRN (14:33)
[2019-03-24] MEDS ORDERED: ZOLPIDEM TARTRATE 5 MG TABLET PO PRN (14:33)
[2019-03-24] MEDS ORDERED: ACETAMINOPHEN WITH CODEINE #3 TABLET PO PRN ×2 (14:33)
[2019-03-24] MEDS ORDERED: MEASLES,MUMPS&RUBELLA VACC/PF 0.5 ML VIAL SUBCUT PRN (14:33)
[2019-03-24] MEDS ORDERED: DIPH/PERTUSS(ACELL)/TETANUS VAC/PF 0.5 ML SYR (>=10YO) IM PRN (14:33)
--- NOTE | 2019-03-24 14:52 | Operative Report ---
Operative Report DATE OF SURGERY: 03/24/19 PREOPERATIVE DIAGNOSIS: Fourth degree OB laceration POSTOPERATIVE DIAGNOSIS: Same OPERATION: Fourth degree repair SURGEON: ZOLTAN LOERA ANESTHESIA: Local TISSUE REMOVED OR ALTERED: Vagina and rectum COMPLICATIONS: None ESTIMATED BLOOD LOSS: 250 cc INTRAOPERATIVE FINDINGS: Fourth degree laceration proximally 1 cm in length PROCEDURE: The patient was inspected and she had approximately a 1 cm in length fourth degree with a perineal laceration. Moving up the vaginal labia there were bilateral lacerations. The entire lesion was in the shape of the Y. Incision was prepped with a dilute solution of soap and warm water. With an photographer's assistant and a fingertip in the rectum the proximal portion of the rectal laceration was identified and closed with a running 3-0 chromic suture. This included closure of the internal anal sphincter. As stated this was approximately 1 cm in length. And this suture was reinforced by imbricating it with a second 3-0 chromic suture in a running fashion. This closed the rectal mucosa very well. Next the rectal external anal sphincter was identified bilaterally and grasped with Allis clamps. Using 3-0 Vicryl suture the external anal sphincter was brought together with 3 [id number] sutures around its circumference. This closed the external anal sphincter well. The perineum was brought together with a interrupted suture of 3-0 chromic. The skin at all sites was brought together with interrupted chromic suture. Rectal tone at the end of the case was noted to be good by fingertip examination. There were no buttonholes through the rectal mucosa.
[2019-03-24] MEDS ORDERED: CEFAZOLIN 2 GM/D5W RTU 2 GM/50 ML RTUPB IV ONE (14:55)
--- NOTE | 2019-03-24 15:03 | Delivery Summary ---
Del Sum A-C Datetime Report Generated by CPN: 03/24/2019 15:03 DELIVERY PERSONNEL DELIVERY PERSONNEL: [id number] Delivery Doctor:: Ivet Martins CNM Nurse Oil Well Logger Certified:: Ivet Martins CNM Labor and Delivery Nurse:: Therese Whitten RN Labor and Delivery Nurse:: LAUREL Carlin Nursery Nurse:: Seamus Benitez RN Nursery Nurse:: Mesfin DODD RN Student Observers:: DR MATIAS @ TO REPAIR 4TH DEGREE LAC Manager Exchange/SENIOR CORPORATE STRATEGY MANAGER: Mary Hahn, WASTE ELIMINATION MATERNAL INFORMATION Delivery Anesthesia: Local Medications After Delivery: Pitocin Bolus-Please Comment; Pitocin Drip 20 Units/1000ml NSS Meds After Delivery Comment: Pitocin 20 units in 1000ml nss open for bolus Estimated Blood Loss (ml): 300 Delivery QBL: 300 Maternal Complications: None Provider Comments: of VFI, [place], delivered and placed on pts abdoman in stable condition, vigorous and crying. Placenta S/C/I, ff w/ decreased bleeding, Placenta and Cord blood obtained. Placenta and cord collected and placed in sterile bag to sent off for stem cell donation. Repair of vaginal side wall lacerations started and then 4th degree laceration was noted. Dr Matias called to the room to repair the 4th degree laceration. Please refer to his note. Mother and baby left in stable condtion, pt with minimal PP bleeding during the procedure. QBL 300 ml. Apgars 8,9. LABOR SUMMARY EDC: 03/28/2019 00:00 No. Babies in Womb: 1 Attempted: No Labor Anesthesia: IV Sedation LABOR INFORMATION Reason for Induction: Other Reason for Induction- Other: FACTOR 5- OFF LOVENOX Onset of Labor: 03/24/2019 10:30 Complete Dilatation: 03/24/2019 13:21 Oxytocin: Induction Group B Beta Strep: Negative Antibiotics # of Doses: 0 Steroids Given: None Reason Steroids Not Administered: Not Applicable MEMBRANES Membranes Rupture Method: Artificial Rupture of Membranes: 03/24/2019 12:20 Length of Rupture (hr): 1.10 Amniotic Fluid Color: Light Meconium Amniotic Fluid Amount: Moderate Amniotic Fluid Odor: Normal STAGES OF LABOR Stage 1 hr: 2 Stage 1 min: 51 Stage 2 hr: 0 Stage 2 min: 5 Stage 3 hr: 0 Stage 3 min: 5 Total Time in Labor hr: 3 Total Time in Labor min: 1 VAGINAL DELIVERY Episiotomy: None Laceration #1: Perineal Laceration Extension #1: Fourth Degree Other Laceration: right labial/sidewall Laceration Repair: Yes Laceration Repair Note: 4th degree repaired by Dr Matias, please see his Op note concerning the repair Sponge Count Correct: N/A Sharps Count Correct: N/A CSECTION DELIVERY Primary Indication: N/A Secondary Indication: N/A CSection Incidence: N/A Labor: N/A Elective: N/A CSection Incision: N/A BABY A INFORMATION Delivery Date/Time: 03/24/2019 13:26 Method of Delivery: Vaginal Born in Route : No : N/A Forceps: N/A Vacuum Extraction: N/A Shoulder Dystocia : No PRESENTATION/POSITION BABY A Presentation: Cephalic Cephalic Presentation: Vertex Vertex Position: Right Occipital Anterior Breech Presentation: N/A PLACENTA INFORMATION BABY A Placenta Delivery Time : 03/24/2019 13:31 Placenta Method of Delivery: Spontaneous Placenta Status: Delivered SCORES BABY A Heart Rate 1 min: >100 bpm Resp Effort 1 min: Good Cry Reflex Irritability 1 min: Cough or Sneeze or Pulls Away Muscle Tone 1 min: Active Motion Color 1 min: Blue/Pale Resuscitation Effort 1 min: Tactile Stimulation SCORE 1 MIN: 8 Heart Rate 5 min: >100 bpm Resp Effort 5 min: Good Cry Reflex Irritability 5 min: Cough or Sneeze or Pulls Away Muscle Tone 5 min: Active Motion Color 5 min: Body [place], Extremities Blue Resuscitation Effort 5 min: N/A SCORE 5 MIN: 9 Resuscitation Effort 10 min: N/A INFANT INFORMATION BABY A Gestational Age at Delivery: 39.3 Gestational Status: Full Term- 39- 40.6 Weeks Outcome : Liveborn Condition : Stable Infant Sex: Female IDENTIFICATION BABY A Verification Date/Time: 03/24/2019 13:43 ID Band Number: [id number] Mother's Name Verified: Yes RN Verifying Infant: JEAN MANA, RN Additional Verifying Personnel: S EDITH, ST WEIGHT/LENGTH BABY A Infant Birthweight (gm): 3508 Infant Weight (lb): 7 Weight (oz): 12 Infant Length (in): 20.50 Infant Length (cm): 52.07 CORD INFORMATION BABY A No. Cord Vessels: 3 Nuchal Cord : N/A Cord Blood Taken: Yes-For Eval (Mom's Blood Type - or O+) Infant Suction: Mouth; Nose ASSESSMENT BABY A Complications: Meconium Physical Findings at Delivery: Within Normal Limits Infant Respirations: Appears Normal Skin to Skin: Yes Skin to Skin Time (min): 75 Salesperson Meats/ALS Called : No Infant Care By: Ml Benitez RN Transferred To: Remains with Mother BABY B INFORMATION : N/A SIGNATURES Assignment: Hallie Matias MD Signature: with User ID: Sofi : with User ID: [email or web address]
[2019-03-24] MEDS ORDERED: CEFAZOLIN 1 GM/D5W RTU 2 GM/100 ML RTUPB IV ONE (15:29)
[2019-03-24] MEDS ORDERED: AMMONIA INHALANTS 10 AMPUL/BOX IH ONE (16:27)
[2019-03-24] MEDS: IBUPROFEN 800 MG TABLET PO SCH ×2 (17:07→21:48)
[2019-03-24] MEDS: DOCUSATE SODIUM 100 MG CAPSULE PO SCH (17:08)
[2019-03-24] MEDS: SENNOSIDES/DOCUSATE 8.6-50 MG 1 EACH TABLET PO SCH (17:09)
[2019-03-25] MEDS: IBUPROFEN 800 MG TABLET PO SCH ×3 (05:23→21:44)
[2019-03-25 06:29] LABS: HEMATOCRIT 30.8 % (36.0-47.0); HEMOGLOBIN 10.4 g/dL (12.0-15.5); MEAN CORPUSCULAR HEMOGLOBIN 30.6 pg (27.0-33.4); MEAN CORPUSCULAR HGB CONC 33.9 g/dL (32.0-36.0); MEAN CORPUSCULAR VOLUME 90 fl (80-97); PLATELET COUNT 126 10^3/uL (150-450); RED BLOOD COUNT 3.41 10^6/uL (3.72-5.28); RED CELL DISTRIBUTION WIDTH 13.5 % (11.5-14.0); WHITE BLOOD COUNT 11.1 10^3/uL (4.0-10.5)
[2019-03-25] MEDS: DOCUSATE SODIUM 100 MG CAPSULE PO SCH ×2 (09:38→17:16)
[2019-03-25] MEDS: SENNOSIDES/DOCUSATE 8.6-50 MG 1 EACH TABLET PO SCH (09:38)
[2019-03-25] MEDS: PRENATAL VITAMIN W DHA CAPSULE PO SCH (09:38)
--- NOTE | 2019-03-25 09:38 | PDOC PROGRESS REPORT ---
Subjective-OB Progress Note for:: 03/25/19 Subjective: Pt doing well, no concerns. She wants to take a shower and use sitz bath. Reports reg diet, voiding without difficulty. Taking stool softeners. Physical Exam (OB) Vital Signs: Temp Pulse Resp BP Pulse Ox 98.1 F 68 18 98/56 L 99 03/25/19 08:03 03/25/19 08:03 03/25/19 08:03 03/25/19 08:03 03/25/19 08:03 Intake & Output 03/24/19 03/25/19 03/26/19 06:59 06:59 06:59 Weight 74.6 kg - PIH/Pre-Eclampsia DTR's: 2 + Clonus: Negative Headache: Absent Epigastric Pain: No Visual Changes: No - Lochia Lochia Amount: Small 10-25 ml Lochia Color: Rubra/Red - Abdomen Description: Soft Hernia Present: No Fundal Description: Firm, Midline Describe if Not Midline: left side Fundal Height: u/u - u/2 Objective-Diagnostic Laboratory: 03/25/19 05:57 03/25/19 05:57 WBC 11.1 H RBC 3.41 L Hgb 10.4 L Hct 30.8 L MCV 90 MCH 30.6 MCHC 33.9 RDW 13.5 Plt Count 126 L Assessment and Plan(PN) - Assessment and Plan (1) Fourth degree laceration of perineum during delivery, Is this a current diagnosis for this admission?: Yes (2) History of blood clotting disorder Is this a current diagnosis for this admission?: Yes (3) (normal spontaneous vaginal delivery) Is this a current diagnosis for this admission?: Yes - Time Spent with Patient Time with patient: Less than 15 minutes Medications reviewed and adjusted accordingly: Yes - Disposition Anticipated Discharge: Home Within: within 24 hours
[2019-03-25] MEDS: ENOXAPARIN SODIUM INJ 40 MG/0.4 ML DISP.SYRIN SUBCUT SCH (10:36)
[2019-03-25] MEDS ORDERED: ENOXAPARIN SODIUM INJ 40 MG/0.4 ML DISP.SYRIN SUBCUT SCH (13:20)
[2019-03-25] MEDS ORDERED: GLYCERIN/WITCH HAZEL LEAF 1 EACH MED..WIPE TP PRN (17:28)
[2019-03-26] MEDS: IBUPROFEN 800 MG TABLET PO SCH (05:49)
[2019-03-26 07:53] VITALS: BP 100/51
--- NOTE | 2019-03-26 10:24 | PDOC DISCHARGE SUMMARY ---
Impression - Admit/DC Date/PCP Admission Date/Primary Care Provider: 03/24/19 06:11 YEVGENIY RUVALCABA, Discharge Date: 03/26/19 - Discharge Diagnosis (1) (normal spontaneous vaginal delivery) Is this a current diagnosis for this admission?: Yes (2) History of blood clotting disorder Is this a current diagnosis for this admission?: Yes (3) Fourth degree laceration of perineum during delivery, Is this a current diagnosis for this admission?: Yes (5) Thrombocytopenia complicating Is this a current diagnosis for this admission?: Yes - Additional Information Resuscitation Status: Full Code Discharge Diet: As Tolerated, Regular Discharge Activity: Activity As Tolerated, Balance Activity w/Rest, No Driving, No Lifting Over 10 Pounds, Pelvic Rest, No tub bath, Walk Frequently Referrals: ZOLTAN MATIAS MD [ACTIVE STAFF] - 03/31/19 10:00 am (Please follow up with Dr Matias on 03/31/19 at 10:00. If you have any questions please call the office directly at .) Prescriptions: Acetaminophen with Codeine [Tylenol #3 Tablet] 2 each PO Q4HP PRN #14 tablet PRN Reason: For Pain Scale 3-5 Ibuprofen [Motrin 800 mg Tablet] 800 mg PO Q8HP PRN #30 tablet PRN Reason: For Pain Scale 1-3 Docusate Sodium [Colace 100 mg Capsule] 100 mg PO BID #60 capsule Benzocaine/Menthol [Dermoplast Aerosol [place] 56 ml] 1 applic TOP PRN PRN #1 can PRN Reason: For Pain Ferrous Sulfate [Feosol 325 mg Tablet] 325 mg PO BID #60 tablet Vit/Dha [ Multi + Dha Capsule] 1 cap PO DAILY #90 capsule Home Medications: Enoxaparin Sodium [Lovenox Inj 40 mg/0.4 ml Disp.syrin] 40 mg SUBCUT DAILY #40 disp.syrin 01/23/18 Acetaminophen with Codeine [Tylenol #3 Tablet] 2 each PO Q4HP PRN #14 tablet 03/26/19 Benzocaine/Menthol [Dermoplast Aerosol [place] 56 ml] 1 applic TOP PRN PRN #1 can 03/26/19 Docusate Sodium [Colace 100 mg Capsule] 100 mg PO BID #60 capsule 03/26/19 Ferrous Sulfate [Feosol 325 mg Tablet] 325 mg PO BID #60 tablet 03/26/19 Ibuprofen [Motrin 800 mg Tablet] 800 mg PO Q8HP PRN #30 tablet 03/26/19 Vit/Dha [ Multi + Dha Capsule] 1 cap PO DAILY #90 capsule 03/26/19 Additional Information: pt with scheduled f/u appt in [address] Matias Results Laboratory Results: WBC 11.1 10^3/uL (4.0-10.5) H 03/25/19 05:57 RBC 3.41 10^6/uL (3.72-5.28) L 03/25/19 05:57 Hgb 10.4 g/dL (12.0-15.5) L 03/25/19 05:57 Hct 30.8 % (36.0-47.0) L 03/25/19 05:57 MCV 90 fl (80-97) 03/25/19 05:57 MCH 30.6 pg (27.0-33.4) 03/25/19 05:57 MCHC 33.9 g/dL (32.0-36.0) 03/25/19 05:57 RDW 13.5 % (11.5-14.0) 03/25/19 05:57 Plt Count 126 10^3/uL (150-450) L 03/25/19 05:57 Lymph % (Auto) 21.5 % (13-45) 03/24/19 07:17 [place] % (Auto) 7.8 % (3-13) 03/24/19 07:17 Eos % (Auto) 0.8 % (0-6) 03/24/19 07:17 Baso % (Auto) 0.3 % (0-2) 03/24/19 07:17 Absolute Neuts (auto) 5.0 10^3/uL (1.7-8.2) 03/24/19 07:17 Absolute Lymphs (auto) 1.5 10^3/uL (0.5-4.7) 03/24/19 07:17 Absolute Monos (auto) 0.6 10^3/uL (0.1-1.4) 03/24/19 07:17 Absolute Eos (auto) 0.1 10^3/uL (0.0-0.6) 03/24/19 07:17 Absolute Basos (auto) 0.0 10^3/uL (0.0-0.2) 03/24/19 07:17 Seg Neutrophils % 69.6 % (42-78) 03/24/19 07:17 Urine Color YELLOW 03/24/19 06:22 Urine Appearance CLOUDY 03/24/19 06:22 Urine pH 6.0 (5.0-9.0) 03/24/19 06:22 Ur Specific [place] 1.016 03/24/19 06:22 Urine Protein NEGATIVE mg/dL (NEGATIVE) 03/24/19 06:22 Urine Glucose (UA) NEGATIVE mg/dL (NEGATIVE) 03/24/19 06:22 Urine Ketones NEGATIVE mg/dL (NEGATIVE) 03/24/19 06:22 Urine Blood NEGATIVE (NEGATIVE) 03/24/19 06:22 Urine Nitrite NEGATIVE (NEGATIVE) 03/24/19 06:22 Urine Bilirubin NEGATIVE (NEGATIVE) 03/24/19 06:22 Urine Urobilinogen NEGATIVE mg/dL (<2.0) 03/24/19 06:22 Ur Leukocyte Esterase SMALL (NEGATIVE) H 03/24/19 06:22 Urine Ascorbic Acid NEGATIVE (NEGATIVE) 03/24/19 06:22 Urine Opiates Screen NEGATIVE 03/24/19 06:22 Urine Methadone Screen NEGATIVE 03/24/19 06:22 Ur Barbiturates Screen NEGATIVE 03/24/19 06:22 Ur Phencyclidine Scrn NEGATIVE 03/24/19 06:22 Ur Amphetamines Screen NEGATIVE 03/24/19 06:22 U Benzodiazepines Scrn NEGATIVE 03/24/19 06:22 Urine Cocaine Screen NEGATIVE 03/24/19 06:22 U Marijuana (THC) Screen NEGATIVE 03/24/19 06:22 RPR NONREACTIVE (NONREACTIVE) 03/24/19 07:17 Blood Type O POSITIVE 03/24/19 07:17 Antibody Screen NEGATIVE 03/24/19 07:17
[2019-03-26] MEDS: PRENATAL VITAMIN W DHA CAPSULE PO SCH (10:40)
[2019-03-26] MEDS: SENNOSIDES/DOCUSATE 8.6-50 MG 1 EACH TABLET PO SCH (10:40)
[2019-03-26] MEDS: DOCUSATE SODIUM 100 MG CAPSULE PO SCH (10:41)
[2019-03-26] MEDS: ENOXAPARIN SODIUM INJ 40 MG/0.4 ML DISP.SYRIN SUBCUT SCH (10:43)
[2019-03-26 11:19] LABS: HEMATOCRIT 33.8 % (36.0-47.0); HEMOGLOBIN 11.2 g/dL (12.0-15.5); MEAN CORPUSCULAR HEMOGLOBIN 30.3 pg (27.0-33.4); MEAN CORPUSCULAR HGB CONC 33.2 g/dL (32.0-36.0); MEAN CORPUSCULAR VOLUME 91 fl (80-97); PLATELET COUNT 141 10^3/uL (150-450); RED CELL DISTRIBUTION WIDTH 13.7 % (11.5-14.0); WHITE BLOOD COUNT 8.6 10^3/uL (4.0-10.5)
== END 2019-03-26 13:30 | disposition home or self-care (01) | DRG 768 ==
LOC: LR 06:11 → 2S 17:00
PROVIDERS: ADMIT Obstetrics & Gynecology; ATTEND Obstetrics & Gynecology
PROC: 10E0XZZ Delivery of Products of Conception, External Approach (ICD-10-PCS; principal; 2019-03-24)
PROC: 0DQP0ZZ Repair Rectum, Open Approach (ICD-10-PCS; 2019-03-24)
DX: O99.12 Other diseases of the blood and blood-forming organs and certain disorders involving the immune mechanism complicating childbirth (principal); Z37.0 Single live birth; O77.0 Labor and delivery complicated by meconium in amniotic fluid; O70.3 Fourth degree perineal laceration during delivery; D69.6 Thrombocytopenia, unspecified; Z3A.39 39 weeks gestation of pregnancy; Z86.711 Personal history of pulmonary embolism
CPT/HCPCS: 36415; 80307; 81005; 85025; 85027; 86592; 86850; 86900; 86901; J0690; J1650; J2590; J3010; J3490